=== PATIENT | male | born 1990 | race Caucasian/White ===

== ENCOUNTER 2020-10-20 08:25 | Emergency (ER) | payer MEDICAID ==
[~2020-10-20] VITALS: Ht 177.8 cm; Wt 81.6 kg
[2020-10-20 08:31] VITALS: BP 104/45
--- NOTE | 2020-10-20 09:05 | NUR ---
PATIENT BIB [place] [employer]. PATIENT EXAMINED BY DR. RIVERA. PATIENT MEDICALLY CLEARED AND RELEASED IN CUSTODY IN STABLE CONDITION. ORIGINAL PRE-BOOK FORM GIVEN TO OFFICER [place].
== END 2020-10-20 09:05 ==
LOC: MED 08:25
DX: Z02.89 Encounter for other administrative examinations (principal); S71.131A Puncture wound without foreign body, right thigh, initial encounter; X58.XXXA Exposure to other specified factors, initial encounter; Y92.89 Other specified places as the place of occurrence of the external cause; Y93.89 Activity, other specified; Y99.8 Other external cause status
CPT/HCPCS: 99283